=== PATIENT | female | born 1980 | race Caucasian/White ===

== ENCOUNTER 2018-11-20 15:47 | Emergency (ER) | payer BC ==
[~2018-11-20] VITALS: Ht 144.8 cm; Wt 93.0 kg
[2018-11-20 16:24] LABS: BASOPHILS # (AUTO) 0.03 x10^3/uL (0-0.1); BASOPHILS % (AUTO) 0 % (0-1); EOSINOPHILS # (AUTO) 0.07 x10^3/uL (0-0.4); EOSINOPHILS % (AUTO) 1 % (1-7); LYMPHOCYTES # (AUTO) 2.07 x10^3/uL (1-3.4); LYMPHOCYTES % (AUTO) 19 % (22-44); MD NO; MEAN CORPUSCULAR HEMOGLOBIN 29.1 pg (27.0-34.8); MEAN CORPUSCULAR HGB CONC 33.8 g/dL (32.4-35.8); MEAN PLATELET VOLUME 9.3 fL (7.4-10.4); MONOCYTES # (AUTO) 0.25 x10^3/uL (0.2-0.8); MONOCYTES % (AUTO) 2 % (2-9); NEUTROPHILS # (AUTO) 8.25 x10^3/uL (1.8-6.8); NEUTROPHILS % (AUTO) 77 % (42-75); PLATELET COUNT 249 x10^3/uL (130-400); RED BLOOD COUNT 5.47 x10^6/uL (3.82-5.3); RED CELL DISTRIBUTION WIDTH 13.2 % (9.6-15.2)
[2018-11-20 16:34] LABS: ALBUMIN 4.3 g/dL (3.4-5.0); ANION GAP 7 mmol/L (5-15); CALCIUM 9.5 mg/dL (8.5-10.1); CHLORIDE 100 mmol/L (98-107)
[2018-11-20 16:40] LABS: CREATININE 0.84 mg/dL (0.55-1.02); TROPONIN I < 0.015 ng/mL (0.000-0.045)
--- NOTE | 2018-11-20 19:00 | NUR ---
REPORT RECEIVED FROM MARIO PIÑA. ASSUMED CARE OF PT
[2018-11-20 19:51] VITALS: BP 110/63
== END 2018-11-20 19:53 | disposition home or self-care (01) ==
LOC: ED 19:00
DX: R55 Syncope and collapse (principal); E11.9 Type 2 diabetes mellitus without complications; V49.49XA Driver injured in collision with other motor vehicles in traffic accident, initial encounter; Y93.89 Activity, other specified; Y92.89 Other specified places as the place of occurrence of the external cause; Y99.8 Other external cause status
CPT/HCPCS: 36415; 70450; 71045; 80048; 82040; 83880; 84484; 85025; 93005; 99284

== ENCOUNTER 2018-12-20 12:56 | Day surgery (SDC) | payer BC ==
[~2018-12-20] VITALS: Ht 144.8 cm; Wt 91.0 kg
[2018-12-20 14:25] VITALS: BP 101/58
[2018-12-20] MEDS ORDERED: LIDOCAINE 1%-EPI 1:100K, 20ML SQ PRN (14:30)
[2018-12-20] MEDS ORDERED: LIDOCAINE 2%, 20ML SQ PRN (14:30)
[2018-12-20] MEDS ORDERED: LIDOCAINE 2%, 20ML ONE (16:01)
== END 2018-12-20 16:00 | disposition home or self-care (01) ==
LOC: CACL 12:56
PROVIDERS: ATTEND Internal Medicine Cardiovascular Disease
DX: R55 Syncope and collapse (principal); E11.65 Type 2 diabetes mellitus with hyperglycemia
CPT/HCPCS: 33285; C1764; J3490

== ENCOUNTER → 2019-01-03 | Outpatient (CLI) | payer BC | END | disposition home or self-care (01) | LOC: CFH 15:06 | PROVIDERS: ATTEND Internal Medicine Cardiovascular Disease | DX: R55 Syncope and collapse (principal); E11.9 Type 2 diabetes mellitus without complications | CPT/HCPCS: 93306 ==

== ENCOUNTER 2020-08-18 12:43 | Outpatient (CLI) | payer BC | END 2020-08-18 23:59 | disposition home or self-care (01) | LOC: CARD 12:43 | PROVIDERS: ATTEND Nurse Practitioner Family | DX: G40.219 Localization-related (focal) (partial) symptomatic epilepsy and epileptic syndromes with complex partial seizures, intractable, without status epilepticus (principal) | CPT/HCPCS: 95819 ==